=== PATIENT | female | born 1945 | race Caucasian/White ===

== ENCOUNTER 2018-03-13 12:27 | Inpatient (IN) | payer OTHER ==
[~2018-03-13] VITALS: Ht 152.4 cm; Wt 60.0 kg
[~2018-03-13 12:27] MED LIST: LORTAB 7.5-5001 EACH PO
[2018-03-13 13:34] LABS: POTASSIUM 3.9 mEq/L (3.7-5.4)
[2018-03-13 13:48] LABS: BASOPHIL (%) 0.6 % (0-1); BASOPHIL COUNT 0.1 K/uL (0-0.1); EOSINOPHIL (%) 0.7 % (0-5); EOSINOPHIL COUNT 0.1 K/uL (0-0.3); HEMATOCRIT 41.3 % (36.0-46.0); IMMATURE GRANULOCYTE (%) 0.3 % (0.0-0.7); LYMPHOCYTE (%) 15.9 % (15-42); LYMPHOCYTE COUNT 1.6 K/uL (1.0-2.8); MCH 29.8 PG (29.0-34.0); MCHC 33.9 G/DL (30.0-36.0); MCV 87.9 FL (83-99); MONOCYTE (%) 4.3 % (3-12); MONOCYTE COUNT 0.4 K/uL (0-0.8); NEUTROPHIL (%) 78.2 % (45-76); PLATELET COUNT 226 K/uL (156-360); RBC DIS.WIDTH-CV 12.8 % (11.8-14.6); RBC DIS.WIDTH-SD 41.5 % (39-53); WHITE BLOOD COUNT 10.2 K/uL (4.1-10.2)
[2018-03-13 13:51] LABS: ALBUMIN 4.4 g/dL (3.2-4.8); CHLORIDE 106 mEq/L (99-109); SODIUM 139 mEq/L (136-147)
[2018-03-13 13:53] LABS: GLUCOSE 97 mg/dL (70-99); TOTAL PROTEIN 7.7 g/dL (6.4-8.3)
[2018-03-13 13:55] LABS: TOTAL BILIRUBIN 0.4 mg/dL (0.0-1.0)
[2018-03-13 13:57] LABS: ALKALINE PHOSPHATASE 78 IU/L (3-129); CREATININE 0.8 mg/dL (0.6-1.3); GFR ESTIMATE (CALCULATED) > 59 mL/min/
[2018-03-13 13:58] LABS: AST (GOT) 13 IU/L (2-34); UREA NITROGEN (BUN) 11 mg/dL (9-23)
[2018-03-13 14:00] LABS: ALT (GPT) 17 IU/L (3-49)
[2018-03-13 14:04] LABS: TROP-I INTERPRETATION NEGATIVE; TROPONIN-I < 0.01 ng/mL (0.0-0.30)
[2018-03-13 15:08] LABS: APPEARANCE CLEAR ((CLEAR)); BILIRUBIN NEGATIVE; BLOOD NEGATIVE; COLOR STRAW ((YELLOW)); GLUCOSE (STRIP) NEGATIVE; KETONES 5; LEUKOCYTES SMALL; NITRITE NEGATIVE; PROTEIN (STRIP) NEGATIVE; SPECIFIC GRAVITY 1.006 (1.000-1.030); UROBILINOGEN 0.2 MG/DL (0.2-1.0)
[2018-03-13 15:10] LABS: BACTERIA NONE SEEN /HPF; EPITHELIAL CELLS RARE /HPF; MUCUS TRACE /LPF; RED BLOOD CELLS 0-5 /HPF (0-5); UCUL ADDED? NO; WHITE BLOOD CELLS 0-5 /HPF (0-5)
[2018-03-13] MEDS ORDERED: LYRICA150 MG PO (15:19)
[2018-03-13] MEDS ORDERED: TIZANIDINE HCL4 MG PO (15:19)
[2018-03-13] MEDS ORDERED: DICLOFENAC POTA50 MG PO (15:19)
[2018-03-13] MEDS ORDERED: METHADONE10 MG PO (15:19)
[2018-03-13] MEDS ORDERED: NORTRIPTYLINE H25 MG PO (15:20)
[2018-03-13] MEDS ORDERED: ALLEGRA60 MG PO (15:21)
[2018-03-13 16:38] LABS: THYROTROPIN (TSH) 0.73 MIU/L (0.4-5.5)
[2018-03-13 17:09] LABS: HDL CHOLESTEROL 59 MG/DL (Desirable>=50); LDL CHOLESTEROL 211 mg/dL (Desirable<100); NON-HDL CHOLESTEROL 237 mg/dL (Desirable<160); TOTAL CHOLESTEROL 296 mg/dL (Desirable<200); TRIGLYCERIDES 131 MG/DL (Normal: <150)
[2018-03-13 17:40] VITALS: BP 209/84
[2018-03-13 20:33] VITALS: BP 180/84
[2018-03-13 22:38] VITALS: BP 174/84
[2018-03-14] VITALS (7 sets, daily range): BP systolic 132–197; BP diastolic 65–87
[2018-03-14 04:10] LABS: BENZODIAZEPINES, URINE SCREEN Negative (200 ng/mL)
[2018-03-14 09:57] LABS: HEMOGLOBIN A1c (GLYCOHEMOGLOB) 5.4 % (Below 5.7)
[2018-03-15 03:20] VITALS: BP 132/64
[2018-03-15 07:15] VITALS: BP 148/68
[2018-03-15 11:21] VITALS: BP 172/67
[2018-03-15] MEDS ORDERED: ATORVASTATIN CA80 MG PO (13:02)
[2018-03-15] MEDS ORDERED: NICOTINE PATCH1 EACH TD (13:02)
[2018-03-15] MEDS ORDERED: LOPRESSOR25 MG PO (13:02)
[2018-03-15] MEDS ORDERED: ASPIR-LOW81 MG PO (13:02)
[2018-03-15] MEDS ORDERED: NIFEDIPINE ER30 MG PO (13:02)
== END 2018-03-15 14:08 | disposition home or self-care (01) | DRG 66 ==
LOC: EME 12:27 → EDOF 15:22 → CANRESERV 15:26 → EDOF 15:41 → 4EAST 15:41 → EDOF 15:41 → ENRESERV 16:51 → 4EAST 17:24 → 5SOUTH 17:43 → 4EAST 03-14 15:26 → ENRESERV 03-15 08:49 → 5SOUTH 03-15 11:16
PROVIDERS: Emergency Medicine; Hospitalist
DX: I63.9 Cerebral infarction, unspecified (principal); I16.0 Hypertensive urgency; F17.210 Nicotine dependence, cigarettes, uncomplicated; E78.5 Hyperlipidemia, unspecified; I10 Essential (primary) hypertension; M79.7 Fibromyalgia; M41.9 Scoliosis, unspecified; Z91.19 Patient's noncompliance with other medical treatment and regimen; Z91.14 Patient's other noncompliance with medication regimen; Z90.710 Acquired absence of both cervix and uterus; Z90.49 Acquired absence of other specified parts of digestive tract
CPT/HCPCS: 70450; 70551; 71045; 80047; 80053; 80061; 80306 90; 81003; 83036; 83880; 84443; 84484; 84999; 85025; 93005; 93880; J0360; J1650; J2060